=== PATIENT | female | born 1935 | race Asian ===

== ENCOUNTER 2016-09-04 06:59 | Day surgery (SDC) | payer OTHER ==
[~2016-09-04] VITALS: Ht 149.9 cm; Wt 48.0 kg
[~2016-09-04 06:59] MED LIST: ACET-784 PO; ATOR10TA84 PO; CALTRATE PLUS PO; DULO30CA2 PO; FentaNYL CITRATE-PF 100 MCG/2 ML VIAL IVP ONE; LISI-660 PO; METF500T4 PO; MIDAZOLAM HCL 2 MG/2 ML VIAL IVP ONE; MULT-1259 PO
[2016-09-04] MEDS ORDERED: MOXIFLOXACIN HCL 0.5% 3 ML OPHTHALMIC SOLUTION OS ONE (07:00)
[2016-09-04] MEDS ORDERED: DICLOFENAC SODIUM 0.1% 2.5 ML OPHTHALMIC SOLUTION OS ONE ×2 (07:00)
[2016-09-04] MEDS ORDERED: RINGERS SOLUTION,LACTATED 500 ML IV ONE ×2 (07:00→07:26)
[2016-09-04] MEDS ORDERED: BESIFLOXACIN HCL 0.6% 5 ML OPHTHALMIC SUSPENSION OS ONE (07:00)
[2016-09-04] MEDS ORDERED: TROPICAMIDE 1% 2 ML OPHTHALMIC SOLUTION ONE (07:25)
[2016-09-04] MEDS ORDERED: PHENYLEPHRINE HCL 2.5% 2 ML OPHTHALMIC SOLUTION ONE (07:25)
[2016-09-04] MEDS ORDERED: MOXIFLOXACIN HCL 0.5% 3 ML OPHTHALMIC SOLUTION ONE (07:25)
[2016-09-04] MEDS ORDERED: DICLOFENAC SODIUM 0.1% 2.5 ML OPHTHALMIC SOLUTION ONE (07:25)
[2016-09-04] MEDS: PHENYLEPHRINE HCL 2.5% 2 ML OPHTHALMIC SOLUTION OS SCH ×2 (07:51→08:03)
[2016-09-04] MEDS: TROPICAMIDE 1% 2 ML OPHTHALMIC SOLUTION OS SCH ×2 (07:51→08:03)
[2016-09-04] MEDS ORDERED: HYALURONATE SODIUM 12 MG/ML 0.8 ML SYRINGE IO ONE (21:19)
[2016-09-04] MEDS ORDERED: TETRACAINE HCL VISCOUS 0.5% 0.6 ML OPHTHALMIC SOLUTION OS ONE (21:19)
[2016-09-04] MEDS ORDERED: POVIDONE-IODINE 10% 15 ML SOLUTION UD TP ONE (21:19)
[2016-09-04] MEDS ORDERED: DEXAMETHASONE SOD PHOS 4 MG/ML VIAL IVP ONE (21:19)
[2016-09-04] MEDS ORDERED: HYALURONATE SOD/CHONDROITIN SOD 0.5 ML VIAL IO ONE (21:19)
[2016-09-04] MEDS ORDERED: LIDOCAINE HCL/PF 1% 2 ML VIAL IM ONE (21:19)
== END 2016-09-04 11:40 | disposition home or self-care (01) ==
LOC: SURGERY 06:59
PROVIDERS: ATTEND Specialist
DX: E11.36 Type 2 diabetes mellitus with diabetic cataract (principal); I10 Essential (primary) hypertension; M19.90 Unspecified osteoarthritis, unspecified site; Z85.3 Personal history of malignant neoplasm of breast; Z90.13 Acquired absence of bilateral breasts and nipples; F17.210 Nicotine dependence, cigarettes, uncomplicated
CPT/HCPCS: 66984; 93005; C1780; J1100; J2250; J3010; J3490 ×2; J7120; 99152; 99153

== ENCOUNTER 2016-11-06 07:05 | Day surgery (SDC) | payer OTHER ==
[~2016-11-06] VITALS: Ht 149.9 cm; Wt 46.8 kg
[~2016-11-06 07:05] MED LIST changes: +DICLOFENAC SODIUM 0.1% 2.5 ML OPHTHALMIC SOLUTION OD ONE; -FentaNYL CITRATE-PF 100 MCG/2 ML VIAL IVP ONE; -MIDAZOLAM HCL 2 MG/2 ML VIAL IVP ONE; +MOXIFLOXACIN HCL 0.5% 3 ML OPHTHALMIC SOLUTION OD ONE; +RINGERS SOLUTION,LACTATED 500 ML IV ONE
[2016-11-06] MEDS ORDERED: DICLOFENAC SODIUM 0.1% 2.5 ML OPHTHALMIC SOLUTION ONE (07:37)
[2016-11-06] MEDS ORDERED: TROPICAMIDE 1% 2 ML OPHTHALMIC SOLUTION ONE (07:37)
[2016-11-06] MEDS ORDERED: PHENYLEPHRINE HCL 2.5% 2 ML OPHTHALMIC SOLUTION ONE (07:37)
[2016-11-06] MEDS ORDERED: MOXIFLOXACIN HCL 0.5% 3 ML OPHTHALMIC SOLUTION ONE (07:37)
[2016-11-06] MEDS ORDERED: RINGERS SOLUTION,LACTATED 500 ML IV ONE (07:38)
[2016-11-06 08:31] LABS: GLUCOSE,POINT OF CARE 124 MG/DL (70-110)
[2016-11-06] MEDS: PHENYLEPHRINE HCL 2.5% 2 ML OPHTHALMIC SOLUTION OD SCH ×2 (08:31→08:38)
[2016-11-06] MEDS: TROPICAMIDE 1% 2 ML OPHTHALMIC SOLUTION OD SCH ×2 (08:31→08:38)
[2016-11-06] MEDS ORDERED: MIDAZOLAM HCL 2 MG/2 ML VIAL IVP ONE (12:00)
[2016-11-06] MEDS ORDERED: FentaNYL CITRATE-PF 100 MCG/2 ML VIAL IVP ONE (12:00)
== END 2016-11-06 11:35 | disposition home or self-care (01) ==
LOC: SURGERY 07:05
PROVIDERS: ATTEND Specialist
DX: H25.011 Cortical age-related cataract, right eye (principal); I10 Essential (primary) hypertension; E78.00 Pure hypercholesterolemia, unspecified; M19.90 Unspecified osteoarthritis, unspecified site; M54.9 Dorsalgia, unspecified; Z98.890 Other specified postprocedural states
CPT/HCPCS: 66984; 82962; C1780; J7120; J2250; J3010